=== PATIENT | male | born 1975 | race Caucasian/White ===

== ENCOUNTER 2021-02-28 19:49 | Emergency (ER) | payer SELFPAY ==
[2021-02-28] VITALS (8 sets, daily range): BP systolic 108–137; BP diastolic 66–92; PULSE 68–93; RESP 18–24; TEMP 36.3; O2SAT 97–99
--- NOTE | ~2021-02-28 | CT_ITS ---
EXAMINATION: CTA chest PE protocol DATE: 02/28/2021 23:19 INDICATION: Shortness of breath TECHNIQUE: Computed tomography angiography (CTA) of the chest was performed with 100 mL Omnipaque-350 intravenous contrast timed to evaluate the pulmonary arteries. Coronal maximum intensity projection 3D-reconstructions were created by the technologist. The dose-length product (DLP) was 628.10 mGy-cm. Automated exposure control and iterative reconstruction technique were employed. COMPARISON: None. FINDINGS: The pulmonary arteries are well-opacified. No pulmonary embolism is identified. There are p atchy airspace opacities with an upper lung zone predominance. No pathologically enlarged thoracic ly mph nodes are identified. The heart size is normal. There is no pleural effusion or pneumothorax. The re is mild thoracic spondylosis. IMPRESSION: 1. No pulmonary embolism or acute cardiopulmonary abnormality. Reviewed, dictated and finalized at location A.
--- NOTE | ~2021-02-28 | XR_ITS ---
XR chest 2V DATE: 02/28/2021 20:21 INDICATION: Shortness of breath, occasional cough, fever. History of smoking. TECHNIQUE: AP and lateral views COMPARISON: None FINDINGS: Heart size appears within normal limits considering magnification associated with AP projec tion. No pulmonary vascular congestion or pleural effusion, pulmonary infiltrate or consolidation or pneumothorax. Status post cervical spine surgical fusion. Degenerative change of the acromioclavicular joints. Degenerative spurring of the thoracic spine. IMPRESSION: No active cardiopulmonary disease Reviewed, dictated and finalized at location A.
--- NOTE | 2021-02-28 19:56 | ECG_ITS ---
Measurements Intervals Gill Rate: 77 P: 49 UT: 136 QRS: 37 QRSD: 95 T: 29 QT: 365 QTc: 414 Interpretive Statements SINUS RHYTHM WITH SINUS ARRHYTHMIA DELAYED PRECORDIAL R/S TRANSITION BORDERLINE ECG Electronically Signed On 03-01-2021 8:18:06 CDT by Dinesh De La Fuente D.O.
[2021-02-28 20:19] LABS: Basophils Absolute Auto 0.1 K/mm3 (0.0-0.1); Basophils Percent Auto 0.6 % (0.2-1.2); Eosinophils Absolute Auto 0.7 K/mm3 (0-0.3); Eosinophils Percent Auto 8.1 % (0-4.4); Hematocrit 51.3 % (42.0-52.0); Immature Granulocyte Absolute 0.03 K/mm3 (0.00-0.031); Immature Granulocyte Percent A 0.4 % (0-0.5); Lymphocytes Absolute Auto 3.18 K/mm3 (0.9-3.2); Lymphocytes Percent Auto 38.9 % (18.3-44.2); Mean Corpuscular HGB Conc 33.1 g/dl (32-36); Mean Corpuscular Hemoglobin 30.2 pg (26-34); Mean Corpuscular Volume 91.1 fl (80-100); Mean Platelet Volume 9.2 fl (7.4-10.4); Monocytes Absolute Auto 0.6 K/mm3 (0.1-0.6); Monocytes Percent Auto 7.5 % (2.6-8.5); Neutrophils Absolute Auto 3.7 K/mm3 (1.3-6.7); Neutrophils Percent Auto 44.5 % (45.5-73.1); Platelet Count Result 260 k/mm3 (150-375); Red Blood Count 5.63 M/mm3 (4.6-6.20); Red Cell Distribution Width 12.4 % (11.5-14.5); White Blood Count 8.2 K/mm3 (4.5-10.0)
[2021-02-28 20:28] LABS: Anion Gap 8 mmol/L (8-16); Blood Urea Nitrogen 21 mg/dL (9-20); Calcium 9.1 mg/dL (8.4-10.2); Carbon Dioxide 27 mmol/L (22-30); Chloride 107 mmol/L (98-107); Estimated CRCL calculation 77 ml/min; Estimated Glomerular Filt Rate > 60; Glucose 89 mg/dL (75-110); Potassium 4.4 mmol/L (3.4-5.0); Sodium 142 mmol/L (137-145)
[2021-02-28] MEDS: ALBUTEROL SULFATE NEB 2.5 MG/0.5 ML INH 5 MG INHALATION (21:16)
[2021-02-28] MEDS: IPRATROPIUM BR 0.02% INH SOLN 0.5 MG/2.5 ML VIAL INHALATION (21:16)
[2021-02-28 22:24] LABS: NT Pro B Type Natriuretic Pept 40 pg/mL (5-100); Troponin I < 0.012 ng/mL (0.000-0.034)
--- NOTE | 2021-02-28 22:33 | PC.NURSE ---
pt updated on ddimer and troponin lab results. explained why CTA of chest was ordered. pt and family has no questions at this time.
--- NOTE | 2021-02-28 22:55 | ED.SOB ---
HPI - SOB/Dyspnea General Chief Complaint: Shortness of Breath/Dyspnea Stated Complaint: SOB, cough Time Seen by Provider: 02/28/21 20:02 Source: patient and family Mode of arrival: ambulatory Limitations: no limitations History of Present Illness HPI Narrative: 45-year-old male Presents with shortness of breath and a dry hacking cough for over a week Symptoms are so severe that he is not smoked for about 7 days Several days ago he did have a fever but has not had one lately He does not have any chest pain No history of lung disease or heart disease that he is aware of He was vaccinated against Covid elicited complaint: shortness of breath and cough Related Data Allergies Allergy/AdvReac Type Severity Reaction Status Date / Time Penicillins Allergy Unknown Verified 12/25/08 10:53 NKDA Allergy Unknown Uncoded 03/05/03 11:37 PCN Allergy Unknown Uncoded 03/05/03 11:37 Review of Systems Review of Systems: All systems reviewed & are unremarkable except as noted in HPI and below Constitutional: Constitutional: Reports no additional constitutional complaints, Denies chills, Reports fatigue, Reports fever(s), Denies headache(s) and Reports weakness Eyes: Eyes: Reports no additional eye complaints and Denies change in vision ENT: Denies headache(s) and Denies sore throat Cardiovascular: Cardiovascular: Denies chest pain and Denies dyspnea Respiratory: Respiratory: Reports cough and Reports dyspnea Gastrointestinal: Gastrointestinal: Denies abdominal pain, Denies diarrhea and Denies vomiting Genitourinary: Genitourinary: Denies dysuria and Denies urinary frequency Musculoskeletal: Musculoskeletal: Denies deformity, Denies arthralgias, Denies joint swelling and Denies numbness Integumentary/Breasts: Skin/Breast: Denies rash and Denies wounds Neurologic: Denies headache(s), Denies focal weakness and Denies numbness Psychiatric: Psychiatric: Reports no additional psychiatric complaints Endocrine: Endocrine: Reports no additional endocrine complaints Hematologic/Lymphatic: Hematologic/Lymphatic: Reports no additional hematologic/lymphatic complaints Allergic/Immunologic: Allergic/Immunologic: Reports no additional allergic/immunologic complaints Exam Const: General: cooperative and no acute distress Orientation/consciousness: patient oriented x3 (alert) HENMT: Head: normal to inspection, normocephalic and atraumatic Ears: external ears normal General nose exam: no epistaxis Mouth: Yes Normal oral and palatal mucosa present Eyes: Conjunctivae: conjunctivae normal EOM: EOMs intact bilaterally Neck: Neck: normal visual inspection, supple and no JVD Resp: Effort & Inspection: normal respiratory effort, not labored and No prolonged expiratory phase Auscultation: wheezes (bilateral) and other (BS =) Cardio: Rate: regular rate Rhythm: regular rhythm Heart sounds: no murmurs GI: Inspection: non-distended GI Palp: Yes Soft to palpation, No Guarding due to palpation present (GI) and No Rebound tenderness present Skin: General skin exam: normal color and no rashes or lesions noted Neuro: General: patient oriented x3 (alert) and moves all extremities Speech: normal speech Extrem: General: normal to inspection and no pedal edema Psych: Affect: normal affect Course Vital Signs Vital signs: Vital Signs Temperature 36.3 C L 02/28/21 19:52 Pulse Rate 78 02/28/21 19:52 Respiratory Rate 24 H 02/28/21 19:52 Blood Pressure 137/92 H 02/28/21 19:52 Pulse Oximetry 99 02/28/21 19:52 Temperature 36.3 C L 02/28/21 19:52 Pulse Rate 92 02/28/21 23:39 Respiratory Rate 20 02/28/21 23:39 Blood Pressure 110/78 02/28/21 23:39 Pulse Oximetry 97 02/28/21 23:39 MDM - SOB/Dyspnea Lab Data Result diagrams: 02/28/21 20:13 02/28/21 20:13 Labs: Lab Results 02/28/21 02/28/21 02/28/21 Range/Units 20:12 20:13 20:13 WBC 8.2 (4.5-10.0) K/mm3 RB
[2021-03-01 01:12] VITALS: BP 115/85; PULSE 80; RESP 20; O2SAT 100
== END 2021-03-01 01:22 | disposition home or self-care (01) ==
PROVIDERS: Emergency Medicine; Emergency Provider Emergency Medicine; PCP Family Medicine Sports Medicine
DX: J18.9 Pneumonia, unspecified organism (principal)
CPT/HCPCS: 36415; 71046; 71275; 80048; 83880; 84484; 85025; 85380; 93005; 94640; 99284; Q9967

== ENCOUNTER 2021-03-09 12:11 | Emergency (ER) | payer OTHER, SELFPAY ==
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
[2021-03-09 13:03] VITALS: BP 140/87; PULSE 73; RESP 14; TEMP 36.8; O2SAT 100
[2021-03-09 13:51] VITALS: BP 119/80; PULSE 65; RESP 16; TEMP 36.9; O2SAT 100
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
== END 2021-03-09 15:09 | disposition home or self-care (01) ==
PROVIDERS: Emergency Provider Emergency Medicine; PCP Family Medicine Sports Medicine
DX: S39.012A Strain of muscle, fascia and tendon of lower back, initial encounter (principal); Z87.891 Personal history of nicotine dependence; V89.2XXA Person injured in unspecified motor-vehicle accident, traffic, initial encounter
CPT/HCPCS: 72110; 99283

== ENCOUNTER 2021-03-10 02:16 | Emergency (ER) | payer OTHER, SELFPAY ==
[2021-03-10] VITALS (21 sets, daily range): BP systolic 112–124; BP diastolic 73–87; PULSE 63–92; RESP 15–20; TEMP 36.7; O2SAT 94–100
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
[2021-03-10 03:38] LABS: Alanine Aminotransferase 36 U/L (4-50); Alkaline Phosphatase 99 U/L (38-126); Anion Gap 10 mmol/L (8-16); Aspartate Amino Transferase 26 U/L (17-59); Bilirubin,Total 0.8 mg/dL (0.2-1.3); Blood Urea Nitrogen 15 mg/dL (9-20); Calcium 8.9 mg/dL (8.4-10.2); Carbon Dioxide 23 mmol/L (22-30); Chloride 107 mmol/L (98-107); Estimated CRCL calculation 84 ml/min; Estimated Glomerular Filt Rate > 60; Glucose 102 mg/dL (75-110); Potassium 4.2 mmol/L (3.4-5.0); Sodium 140 mmol/L (137-145)
[2021-03-10 03:41] LABS: Basophils Absolute Auto 0.1 K/mm3 (0.0-0.1); Basophils Percent Auto 0.6 % (0.2-1.2); Eosinophils Absolute Auto 0.4 K/mm3 (0-0.3); Eosinophils Percent Auto 2.5 % (0-4.4); Hematocrit 47.2 % (42.0-52.0); Hemoglobin 15.7 g/dL (14.0-18.0); Immature Granulocyte Absolute 0.06 K/mm3 (0.00-0.031); Immature Granulocyte Percent A 0.4 % (0-0.5); Immature Platelet Fraction Pct 2.9 % (0.9-11.2); Lymphocytes Absolute Auto 2.13 K/mm3 (0.9-3.2); Lymphocytes Percent Auto 15.3 % (18.3-44.2); Mean Corpuscular HGB Conc 33.3 g/dl (32-36); Mean Corpuscular Hemoglobin 30.1 pg (26-34); Mean Corpuscular Volume 90.6 fl (80-100); Mean Platelet Volume 9.6 fl (7.4-10.4); Monocytes Absolute Auto 1.1 K/mm3 (0.1-0.6); Monocytes Percent Auto 7.9 % (2.6-8.5); Neutrophils Absolute Auto 10.2 K/mm3 (1.3-6.7); Neutrophils Percent Auto 73.3 % (45.5-73.1); Platelet Count Result 260 k/mm3 (150-375); Red Blood Count 5.21 M/mm3 (4.6-6.20); Red Cell Distribution Width 12.4 % (11.5-14.5); White Blood Count 13.9 K/mm3 (4.5-10.0)
[2021-03-10] MEDS: HYDROcodone/acetaminophen (*CRX) 5-325 MG TABLET 1 TAB PO (04:11)
[2021-03-10] MEDS: KETOROLAC 30 MG/ML VIAL (*BKC) IV PUSH (04:11)
== END 2021-03-10 06:15 | disposition home or self-care (01) ==
PROVIDERS: Emergency Provider Emergency Medicine; PCP Family Medicine Sports Medicine
DX: S20.211A Contusion of right front wall of thorax, initial encounter (principal); Z87.891 Personal history of nicotine dependence; R91.8 Other nonspecific abnormal finding of lung field; V43.52XA Car driver injured in collision with other type car in traffic accident, initial encounter
CPT/HCPCS: 36415; 71260; 74177; 80053; 85025; 85055; 96374; 99284; A9270; J1885; Q9967

== ENCOUNTER 2025-08-28 12:57 | Emergency (ER) | payer SELFPAY ==
--- NOTE | ~2025-08-28 | XR_ITS ---
EXAMINATION: XR chest 2V DATE: 08/28/2025 16:07 INDICATION: Cough TECHNIQUE: Frontal and lateral views of the chest were obtained. COMPARISON: February 28, 2021 FINDINGS: Heart shadow normal. Lungs are clear. Bones appear stable and multilevel degenerative changes throughout the thoracic spine and fusion hardware in the lower cervical spine. No pneumothorax or subphrenic free air. IMPRESSION: 1. No focal acute process. Reviewed, dictated and finalized at location A. MOP MAKER IMPRESSION: 1. No focal acute process.
[2025-08-28 13:11] VITALS: BP 137/86; PULSE 83; RESP 18; TEMP 36.7; O2SAT 97
--- OUTSIDE RECORDS SUMMARY | 2025-08-28 14:55 | XMS_ITS | Clinical Summary ---
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 Gender Identity Not on file Sexual Orientation Not on file Plan of Treatment Health Maintenance Due Date Last Done Comments Hepatitis C Virus (HCV) Screening 1974 TdaP Immunization 1974 Hepatitis B Immunization (1 of 3 - 19+ 3-dose series) 1993 Cologuard 2019 Colonoscopy 2019 Colorectal Cancer Screening 2019 Immunochemical Fecal Occult Blood 2019 Pneumococcal Immunization (5 0+ years) (1 of 1 - PCV) 2024 Zoster Immunization (1 of 2) 2024 Influenza Immunization (#1) 2025 SARS-COV-2 Immunization ( - 2023- season) 2025 Respiratory Syncytial Virus (RSV) Immunization (Adult) (1 - 1-dose 75+ series) 2049 Human Papillomavirus (HPV) Immunization Aged Out No longer eligible b ased on patient's age to complete this topic Meningococcal Immunization (ACWY) Aged Out No longer eligible based on patient's age to complete this topic Rotavirus Immunization Aged Out No lo nger eligible based on patient's age to complete this topic
--- OUTSIDE RECORDS SUMMARY | 2025-08-28 14:55 | XMS_ITS | Clinical Summary ---
Author Organization [facility] Address [address] [place] [address] Care Team Providers Care [employer] T[employer]ley Driver Name Role Phone Kevon Felder MD Primary Care Provider [phone] Allergies Active Allergy Reactions Criticality Noted Date Comments Penicillins Anaphylaxis High 07/04/2019 Medications gabapentin (NEURONTIN) 100 mg capsuleIndicati ons:Neuropathic Pain Take 1 capsule (100 mg total) by mouth 3 (three) times a day 30 capsule 07/05/2019 Active Surgical History Surgery Date Site/Laterality Comments NECK SURGERY FINGER AMPUTATION Social History Tobacco Use Types Packs/Day Years Used Date Smoking Tobacco: Every Day Cigarettes Smokeless Tobacco: Never Alcohol Use Standard Drinks/Week Comments Never 0 (1 standard drink = 0.6 oz pur e alcohol) AUDIT-C Answer Date Recorded Frequency of Alcohol Consumption Never 07/04/2019 Average Number of Drinks Not on file 019 Frequency of Binge Drinking Not on file 06/13 Personal Safety Answer Date Recorded Getting School Help Needed Not on file 11/12 Sex and Gender Information Value Date Recorded Sex Assigned at Not on file Legal Sex Male 7:02 PM [employer] Gender Identity Not on file Sexual Orientation Not on file Last Filed Vital Signs Vital Sign Reading Time Taken Comments Blood Pressure 132/90 02/21/2021 11:00 PM CDT Pulse 89 02/21/2021 11:00 PM CDT Temperature 37.7 C (99.8 F) 02/21/2021 7:18 PM CDT Respiratory Rate 20 02/21/2021 11:0 0 PM CDT Oxygen Saturation 100% 02/21/2021 11: 00 PM CDT Inhaled Oxygen Concentration - - Weight 90.1 kg (198 lb 10.2 oz) 02/21/2021 7:18 PM CDT Height 167.6 cm (5' 6) 02/21/2021 7:18 PM CDT Body Mass Index 32.06 02/21/2021 7:18 PM CDT Plan of Treatment Not on file Insurance [employer] Care Teams Public Transit Trolley Driver Relationship Specialty [place] [id number] [place] [address] PCP - General 07/04/19
[2025-08-28 15:47] VITALS: BP 124/76; PULSE 74; RESP 16; TEMP 36.7; O2SAT 97
--- NOTE | 2025-08-28 16:04 | ED_ITS ---
HPI - URI/Sore Throat General Chief Complaint: Upper Respiratory Infection <Arline Wilder APRN - Last Filed: 08/29/25 18:03> Stated Complaint: COUGH,CONGESTION <Arline Wilder APRN - Last Filed: 08/29/25 18:03> Time Seen by Provider: 08/28/25 16:04 <Arline Wilder APRN - Last Filed: 08/29/25 18:03> Focused HPI: Patient is a 50-year-old male who presents to the ER with upper respiratory infection symptoms. He reports he has had full body aches, sore throat, cough, and headaches for the past week and a half. Patient is unsure whether not he has been febrile. He endorses a history of COPD and pneumonia. Patient endorses intermittent wheezing. GENERAL: Well-appearing, well-nourished, and in no acute distress. HEAD: Normocephalic, atraumatic. CHEST: Clear to auscultation. ?No respiratory distress. HEART: Regular rate and rhythm.? NEURO: ?Alert and oriented x3. Patient screened in triage and initial orders placed.? ?Additional care and disposition to be based upon?diagnostic testing and treatment. <Arline Wilder APRN - Last Filed: 08/29/25 18:03> History of Present Illness HPI Narrative: Agree with HPI <Donnie Raymond DO - Last Filed: 08/29/25 19:19> Related Data Allergies/Adverse Reactions: Allergies Allergy/AdvReac Type Severity Reaction Status Date / Time Penicillins Allergy Unknown Swelling Verified 08/28/25 12:58 of Lip/Tongue/Throat <Arline Wilder APRN - Last Filed: 08/29/25 18:03> Review of Systems Review of Systems: All systems reviewed & are unremarkable except as noted in HPI and below <Donnie Raymond DO - Last Filed: 08/29/25 19:19> PMFSH Social History Social History: Social History Smoking status: Former smoker Substance use: never <Arline Wilder APRN - Last Filed: 08/29/25 18:03> Exam Narrative: APPEARANCE: No acute distress, nontoxic, resting in bed HEENT: Normocephalic, atraumatic, OMM. Mild posterior oropharyngeal erythema RESPIRATORY: Lungs clear to auscultation in breathing. CARDIOVASCULAR: Appears well perfused ABDOMINAL: Nondistended MUSCULOSKELETAl: Moves all extremities. No obvious deformities NEURO: Awake and alert. SKIN:: Warm, dry. No rashes lesions or abrasions PSYCHIATRIC: Normal affect/mood, <Donnie Raymond DO - Last Filed: 08/29/25 19:19> Course Vital Signs Vital signs: Vital Signs Temperature 98.1 F 08/28/25 13:11 Pulse Rate 83 08/28/25 13:11 Respiratory Rate 18 08/28/25 13:11 Blood Pressure 137/86 08/28/25 13:11 Pulse Oximetry 97 08/28/25 13:11 Temperature 98 F 08/28/25 20:05 Pulse Rate 95 08/28/25 20:05 Respiratory Rate 18 08/28/25 20:05 Blood Pressure 120/77 08/28/25 20:05 Pulse Oximetry 94 08/28/25 20:05 Oxygen Delivery Room Air 08/28/25 18:21 <Arline Wilder, AVIATION ELECTRONIC WARFARE OPERATOR - Last Filed: 08/29/25 18:03> Vital Signs Temperature 98.1 F 08/28/25 13:11 Pulse Rate 83 08/28/25 13:11 Respiratory Rate 18 08/28/25 13:11 Blood Pressure 137/86 08/28/25 13:11 Pulse Oximetry 97 08/28/25 13:11 Temperature 98 F 08/28/25 20:05 Pulse Rate 95 08/28/25 20:05 Respiratory Rate 18 08/28/25 20:05 Blood Pressure 120/77 08/28/25 20:05 Pulse Oximetry 94 08/28/25 20:05 Oxygen Delivery Room Air 08/28/25 18:21 <Donnie Raymond DO - Last Filed: 08/29/25 19:19> [facility] MDM Narrative Medical decision making narrative: 50-year-old male Presenting for flu-like symptoms. On initial evaluation patient was in no acute distress afebrile, hemodynamic stable. Differentials include but are not limited to: Viral syndrome, strep pharyngitis, viral pharyngitis, sinusitis, laryngitis, SUPPLY CRIB ATTENDANT, RPA Notable exam findings: Mild posterior or pharyngeal erythema, heart and lungs clear. I personally reviewed the patient's lab result. Notable lab findings: COVID/flu/RSV negative, strep negative. I personally reviewed the patient's images and interpret as follows: Chest x- ray: Normal cardiac silhouette, no consolidations, no pleural effusions, no pulmonary vascular congestion Patient may have an underlying COPD with a likely viral illness. Because of this, he will be given prescriptions for Augmentin, doxycycline, and prednisone. He was advised follow-up with PCP in the next week for re-evaluation. Patient was to this plan. Given strict return precautions. <Donnie Raymond DO - Last Filed: 08/29/25 19:19> Differential Diagnosis Differential Diagnosis: Viral syndrome, strep pharyngitis, viral pharyngitis, sinusitis, laryngitis, SUPPLY CRIB ATTENDANT, RPA <Donnie Raymond DO - Last Filed: 08/29/25 19:19> Lab Data Labs: Lab Results 08/28/25 08/28/25 Range/Units 16:00 18:27 Influenza A (RT-PCR) Negative (Negative) Influenza B (RT-PCR) Negative (Negative) RSV (RT-PCR) Negative (Negative) SARS-CoV-2 RNA (RT-PCR) Negative (Negative) Group A Strep (PCR) Not detected (Negative) <Arline Wilder, AVIATION ELECTRONIC WARFARE OPERATOR - Last Filed: 08/29/25 18:03> Lab Results 08/28/25 08/28/25 Range/Units 16:00 18:27 Influenza A (RT-PCR) Negative (Negative) Influenza B (RT-PCR) Negative (Negative) RSV (RT-PCR) Negative (Negative) SARS-CoV-2 RNA (RT-PCR) Negative (Negative) Group A Strep (PCR) Not detected (Negative) <Donnei Raymond DO - Last Filed: 08/29/25 19:19> Imaging Data Radiologist's impression: ITS Impressions Chest X-Ray 08/28/25 16:10 IMPRESSION: 1. No focal acute process. <Arline Wilder, AVIATION ELECTRONIC WARFARE OPERATOR - Last Filed: 08/29/25 18:03> ITS Impressions Chest X-Ray 08/28/25 16:10 IMPRESSION: 1. No focal acute process. <Donnie Raymond DO - Last Filed: 08/29/25 19:19> Discharge Plan Discharge Clinical Impression: Viral URI, Acute exacerbation of chronic obstructive pulmonary disease <Arline Wilder APRN - Last Filed: 08/29/25 18:03> Patient Disposition: Home <Arline Wilder APRN - Last Filed: 08/29/25 18:03> Condition: Stable <Arline Wilder APRN - Last Filed: 08/29/25 18:03> Instructions: Antibiotic Form, Acute Bronchitis (ED), COPD (Chronic Obstructive Pulmonary Disease) (ED) <Arline Wilder APRN - Last Filed: 08/29/25 18:03> Additional Instructions: Covid/flu/RSV test and strep tests are negative. You may have an underlying COPD as well as a bronchitis. Because of this, your given prescriptions for Augmentin, doxycycline, prednisone, albuterol inhaler, take this as prescribed. Follow-up with your PCP in the next week for re-evaluation. Return to the ED for new worsening symptoms. <Arline Wilder APRN - Last Filed: 08/29/25 18:03> Patient Language: Cypriot <Arline Wilder APRN - Last Filed: 08/29/25 18:03> Prescriptions: New amoxicillin-pot clavulanate 875-125 mg tablet 1 tablet PO Q12H Qty: 10 0RF doxycycline hyclate 100 mg capsule 100 mg PO BID 5 Days Qty: 10 0RF prednisone 20 mg tablet 40 mg PO DAILY 4 Days Qty: 8 0RF albuterol sulfate [Ventolin HFA] 90 mcg/actuation HFA aerosol inhaler 2 inh inhalation Q4H PRN (Reason: shortness of breath or wheezing) Qty: 8.5 0RF No Action azithromycin 250 mg tablet See Rx Instructions .ROUTE .COMPLEX Qty: 6 0RF Rx Instructions: take 500 mg today (day 1), then 250 mg for 4 days (days 2-5) prednisone 10 mg tablet 10 mg PO BID Qty: 6 0RF albuterol sulfate 90 mcg/actuation HFA aerosol inhaler 2 puff inhalation QID Qty: 8.5 0RF hydrocodone-acetaminophen 5-325 mg tablet 1 tablet PO Q6H PRN (Reason: pain) Qty: 8 0RF <Arline Wilder APRN - Last Filed: 08/29/25 18:03> Follow-up/Referrals: Kamron,Dinesh Flynn MD [Non-Staff, Family Practice] <Arline Wilder APRN - Last Filed: 08/29/25 18:03> Stand Alone Forms: Work/School Release IP <Arline Wilder APRN - Last Filed: 08/29/25 18:03>
[2025-08-28 16:39] LABS: Influenza A QL RT-PCR Negative (Negative); Influenza B QL RT-PCR Negative (Negative); RSV RNA, RT-PCR Negative (Negative); SARS-CoV-2 RNA PCR Negative (Negative)
[2025-08-28 18:24] VITALS: BP 128/88; PULSE 90; RESP 18; TEMP 36.4; O2SAT 97
[2025-08-28 18:55] LABS: Strep Group A RT-PCR NOT DETECTED (Negative)
--- OUTSIDE RECORDS SUMMARY | 2025-08-28 19:05 | XMS_ITS | Clinical Summary ---
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
--- OUTSIDE RECORDS SUMMARY | 2025-08-28 19:05 | XMS_ITS | Clinical Summary ---
Author Organization [facility] Address [address] [place] [address] Care Team Providers Care Office Services Coordinator Name Role Phone Dinesh Lundy MD Primary Care Provider [phone] Allergies Active Allergy Reactions Criticality Noted Date Comments Penicillins Anaphylaxis High 08/25/2017 Medications cyclobenzaprin e 10 MG tablet Take 1 tablet (10 mg total) by mouth 2 (two) times daily as needed for Muscle Spasms. 14 tablet 8 Active meloxicam (MOBIC) 7.5 MG tablet Take 7.5 mg by mouth 2 (two) times daily as needed for Pain. Active gabapentin (NEURONTIN) 100 MG capsule Take 100 mg by mouth daily. Active allopurinol (ZYLOPRIM) 100 MG tablet Take 100 mg by mouth daily. 2 Active SYMBICORT 160-4.5 MCG/ACT inhaler Inhale 2 puffs into the lungs 2 (two) times daily. 2 Active vitamin D2, ergocalciferol , (DRISDOL) 51910 UNITS capsule Take 50,000 Units by mouth see administration instructions. Take every 15 days. 2 Active COMBIVENT RESPIMAT 20-100 MCG/ACT inhaler Inhale 1 puff into the lungs 4 (four) times a day. 2 Active losartan-hydro CHLOROthiazide (HYZAAR) 50-12.5 MG tablet Take 1 tablet by mouth daily. 2 Active omeprazole (PRILOSEC) 20 MG capsule Take 20 mg by mouth 2 (two) times daily. 2 Active potassium chloride CR (KLOR-CON M) 20 MEQ tablet Take 20 mEq by mouth daily. 2 Active cyanocobalamin (B-12) 1000 MCG/ML injection Inject 1,000 mcg into the skin monthly. 2 Active dicyclomine (BENTYL) 20 MG tablet Take 1 tablet (20 mg total) by mouth every 6 (six) hours. 40 tablet 2 Active Active Problems No known active problems Family History Medical History Relation Comments Dementia Mother Relation Status Comments Father Mother Alive Social History Tobacco Use Types Packs/Day Years Used Date Smoking Tobacco: Former Cigarettes Smokeless Tobacco: Never Alcohol Use Standard Drinks/Week Comments No 0 (1 standard drink = 0.6 oz pur e alcohol) Sex and Gender Information Value Date Recorded Sex Assigned at Not on file Legal Sex Male 1:07 PM CDT Gender Identity Not on file Sexual Orientation Not on file Last Filed Vital Signs Vital Sign Reading Time Taken Comments Blood Pressure 155/95 07/24/2022 11:31 PM SORTER LUMBER STRAIGHTENER Pulse 74 07/24/2022 11:31 PM SORTER LUMBER STRAIGHTENER Temperature 36.2 C (97.2 F) 07/24/2022 11:31 PM SORTER LUMBER STRAIGHTENER Respiratory Rate 20 07/24/2022 11:31 PM SORTER LUMBER STRAIGHTENER Oxygen Saturation 97% 07/24/2022 11:31 PM SORTER LUMBER STRAIGHTENER Inhaled Oxygen Concentration - - Weight 99.8 kg (220 lb) 07/24/2022 11:31 PM SORTER LUMBER STRAIGHTENER Height 165.1 cm (5' 5) 07/24/2022 11:31 PM SORTER LUMBER STRAIGHTENER Body Mass Index 36.61 07/24/2022 11:31 PM SORTER LUMBER STRAIGHTENER Plan of Treatment Health Maintenance Due Date Last Done Comments Colorectal Cancer Screening Colonoscopy (10 Years) 1974 Annual Physical 1977 Hepatitis C 1992 DTaP, Tdap and Td Vaccines ( 1 - Tdap) 1993 Hepatitis B Vaccines (1 of 3 - 19+ 3-dose series) 1993 Pneumococcal Vaccine: 50+ Years (1 of 1 - PCV) 2024 Zoster Vaccines (1 of 2) 2024 COVID-19 Vaccine (3 - 2024-2 6 season) 2025 01/07/2021, 12/17/2020 Influenza Adult (#1) 2025 Hepatitis A Vaccines Aged Out 07/14/2010 No long er eligible based on patient's age to complete this topic Meningococcal B Vaccine Aged Out No l onger eligible based on patient's age to complete this topic Meningococcal Vaccine Aged Out No reema venkat eligible based on patient's age to complete this topic RSV Immunizations Under 20 Months Aged Out No longer eligible b ased on patient's age to complete this topic Insurance [employer] MEDICAID Advance Directives Documents on File Type Date Recorded Patient [facility] Expl anation Advance Directives and Livin g Will 02/12/2015 POWER OF PHARMACY CLINICAL COORDINATOR Advance Directives and Livin g Will 02/12/2015 POWER OF PHARMACY CLINICAL COORDINATOR Care Teams Office Services Coordinator Relationship Specialty Start Date End Date Dinesh Lundy MD [address] [place] [address] PCP - General FAMILY MEDICINE SPORTS MEDICINE 07/24/22
--- OUTSIDE RECORDS SUMMARY | 2025-08-28 19:05 | XMS_ITS | Clinical Summary ---
Author Organization [facility] Address [address] [place] [address] Care Team Providers Care Sole Ruffer Name Role Phone Kevon Felder MD Primary Care Provider [phone] Allergies Active Allergy Reactions Criticality Noted Date [...] on file Legal Sex Male 7:02 PM SCRUB TECH Gender Identity Not on file Sexual [...] on file Insurance [employer] Care Teams Sole Ruffer Relationship Specialty [place] [id number] [place] [address] PCP - General 07/04/19
[2025-08-28 20:05] VITALS: BP 120/77; PULSE 95; RESP 18; TEMP 36.6; O2SAT 94
[2025-08-28] MEDS: DOXYCYCLINE HYCLATE 100 MG TABLET PO (20:05)
== END 2025-08-28 20:11 | disposition home or self-care (01) ==
PROVIDERS: Registered Nurse; Emergency Provider Student in an Organized Health Care Education/Training Program
DX: J06.9 Acute upper respiratory infection, unspecified (principal); J44.1 Chronic obstructive pulmonary disease with (acute) exacerbation; Z20.822 Contact with and (suspected) exposure to COVID-19; Z87.891 Personal history of nicotine dependence
CPT/HCPCS: 71046; 87637; 87651; 99283; A9270; J7512